=== PATIENT | female | born 1990 | race Caucasian/White ===

== ENCOUNTER → 2018-07-11 | Outpatient (CLI) | payer BC ==
[~2018-07-11] MED LIST: BIRTH CONTROL; METR500T PO; PRM5C60 TP
--- NOTE | 2018-07-11 14:11 | Diagnostic Imaging Report ---
PROCEDURE: US Non-ob pelvis comp/trans. TECHNIQUE: Multiple realtime grayscale images were obtained of the pelvis in various projections endovaginally. Transabdominal imaging was also performed. INDICATION: Irregular menses. FINDINGS: The uterus measures 7.4 x 4.0 x 3.1 cm. The endometrium is 5 mm in thickness. No uterine mass is identified. Right ovary measures 2.6 x 1.9 x 1.7 cm and the left ovary measures 2.7 x 1.7 x 1.4 cm. There is blood flow to both ovaries. No adnexal mass or free fluid is seen. IMPRESSION: Unremarkable pelvic ultrasound. Dictated by: Dictated on workstation # [id number]
== END ==
LOC: RAD 11:51
PROVIDERS: ATTEND Nurse Practitioner Family
DX: N92.6 Irregular menstruation, unspecified (principal)
CPT/HCPCS: 76830; 76856